=== PATIENT | male | born 1965 | race Caucasian/White ===

== ENCOUNTER 2023-09-01 10:19 | Emergency (ER) | payer BC, SELFPAY ==
[2023-09-01 10:28] VITALS: BP 173/90
[2023-09-01 10:35] VITALS: BMI 42.1
[2023-09-01 10:54] LABS: % Basophils 0.3 % (0-2); % Eosinophils 0.4 % (0-6); % Immature Granulocytes 0.6 % (0-0.5); % Lymphocytes 23.7 % (20.5-51.1); % Monocytes 6.3 % (1.7-9.3); % Neutrophils 68.7 % (42.2-75.2); Absolute Immature Granulocytes 0.1 10^3/uL (0-0.05); Absolute Lymphocytes 2.3 10^3/uL (1.2-3.4); Absolute Monocytes 0.6 10^3/uL (0.1-0.6); Absolute Neutrophils 6.7 10^3/uL (1.4-6.5); Hemoglobin 13.4 g/dL (13.0-18.0); Mean Corp Hgb Conc. 34.4 g/dL (33.0-37.0); Mean Corpuscular Volume 87.2 fL (80.0-94.0); Mean Platelet Volume 9.8 fL (7.4-10.4); Nucleated Red Blood Cells % 0 % (-); Platelet Count 267 10^3/uL (130-400); Red Blood Cell Count 4.47 10^6/uL (4.70-6.10); Red Cell Dist. Width 12.5 % (11.5-14.5); White Blood Cell Count 9.8 10^3/uL (4.8-10.8)
--- NOTE | 2023-09-01 11:00 | ED.GENMED ---
History of Present Illness
General
Chief Complaint: Chest Pain
Source: patient
Exam Limitations: none
Time Seen by Provider: 09/01/23 10:32
Travel History
Have you had any contact with someone who has COVID-19?: No
Do you have any symptoms of coronavirus? Fever > 100 degrees, chills, cough, shortness of breath, sore throat, loss of taste or smell, muscle aches, or headache?: No
History of Present Illness
History of Present Illness:
58-year-old male who presents with chest pain, pain in the back, nausea and a feeling like a lump in the throat which started today. The patient states he was getting ready to take his kids to the beach and had had a [employer] egg and cheese and an ice
tea. Patient states symptoms started shortly after that. He does admit to nausea persistent pain on my exam. Symptoms began about an hour prior to arrival. Patient has a history of gastric bypass surgery. He also has a history of diabetes and
vascular problems. He does report his left leg has been swollen and that he has been seen vascular for it. He denies shortness of breath or dizziness. No vomiting. No abdominal pain.
Past History
Past History
ED Past Medical History: HTN, Hypercholesterolemia, NIDDM and Other (chronic bronchitis)
ED Past Surgical History: Appendectomy, Orthopedic and Other (Gastric sleeve)
Social History
Personal:
Phy Exam
Physical Exam
Physical Exam:
CONSTITUTIONAL Patient alert and oriented to person, place and time. Well-appearing. Vital signs reviewed.
HEAD atraumatic, normocephalic.
EYES eyelids normal to inspection, Pupils equally round and reactive to light, Extraocular muscles intact, Conjunctiva normal, Sclera normal.
NECK normal range of motion, Trachea midline, no jugular venous distention.
RESPIRATORY CHEST No respiratory distress noted, Chest expansion equal, Bilateral breath sounds clear.
CARDIOVASCULAR regular rate and rhythm, Heart sounds normal.
ABDOMEN abdomen nontender, Bowel sounds normal. No distention.
BACK normal inspection, no obvious deformities
UPPER EXTREMITY range of motion normal, Motor strength normal, no cyanosis, no edema.
LOWER EXTREMITY range of motion normal, Motor strength normal, no cyanosis, no edema.
NEURO Speech normal, No focal motor deficits, [place] coma scale 15, Memory normal, Cranial Nerves intact to screening exam.
SKIN skin warm, dry, and normal in color.
PSYCHIATRIC patient oriented to person place and time, Normal affect.
Scores
Heart Score for Chest Pain Patients
STEMI patient?: No
History: Slightly or Non-Suspicious
ECG: Normal
Age: >45 - <65 years
Risk Factors: 1 or 2 Risk Factors
Troponin: </= Normal Limit
Heart Score for Chest Pain Patients: 2
Heart Score Risk: 2.5% MACE over next 6 weeks
Course
Orders/Labs/Results
Orders:
Orders
09/01/23 10:21
EKG [Electrocardiogram (*1)] Urgent
Reason for Study: Chest Pain
09/01/23 10:22
EKG- Treatment ONCE
09/01/23 10:43
Complete Blood Count/With Diff Urgent
Comprehensive Metabolic Panel Urgent
Lipase Urgent
Troponin I Urgent
09/01/23 10:59
Ondansetron Injectable [Zofran] 4 mg IV NOW STA
09/01/23 11:00
D-Dimer Urgent
Ondansetron Injectable [Zofran] 4 mg IV NOW STA
Pantoprazole [Protonix IV] 40 mg IV NOW STA
Sucralfate Suspension [Carafate Suspension] 1 gm PO NOW STA
09/01/23 11:05
Sterile Water [Sterile Water For Injection] 20 ml .ROUTE .STK-MED
09/01/23 11:32
CR Chest - 2 Views Urgent
Comment:
Reason For Exam: cp, back pain
09/01/23 13:00
ECG [Electrocardiogram (*1)] Urgent
Reason for Study: Chest Pain
Other Reason for Exam: Serial troponin
EKG- Treatment ONCE
09/01/23 13:04
Troponin I Urgent
Abnormal Lab Results
09/01/23
10:43
RBC 4.47 L 10^6/uL
(4.70-6.10)
Abs Immat Gran (auto) 0.1 H 10^3/uL
(0-0.05)
Absolute Neuts (auto) 6.7 H 10^3/uL
(1.4-6.5)
Immature Gran % 0.6 H %
(0-0.5)
Glucose 162 H mg/dl
(70-99)
09/01/23 10:43
09/01/23 10:43
Vital Signs
Initial and Last Documented VS:
Initial Vital Signs
Temp Pulse Resp BP Pulse Ox
98.8 F 80 16 173/90 98
09/01/23 10:28 09/01/23 10:28 09/01/23 10:28 09/01/23 10:28 09/01/23 10:28
Last Documented Vital Signs
Temp Pulse Resp BP Pulse Ox
98.8 F 70 17 129/68 98
09/01/23 10:28 09/01/23 14:00 09/01/23 14:00 09/01/23 14:00 09/01/23 14:00
MDM/Problems Addressed
Differential Diagnosis Includes:
ACS, AL, PE, GERD, Aortic dissection
MDM/Problems Addressed:
chest pain
*Radiology
Radiology exam reviewed: radiology read reviewed and all reviewed NAD by ED Provider
*Pulse Oximetry
Patient hypoxic: no
*EKG
Interpreted by ED Provider?: Yes
Interpretation: normal
Rate: normal
Rhythm: sinus
[place]: normal axis
QRS Pattern: normal QRS
Ischemia: no ischemia
*Pricing Coordinator Interpretation
Rate: normal
Interpretation: normal
Rhythm: sinus
*Critical Care Note
Total Time (30-74mins, 75-104mins- exclusive of procedures): Not Applicable
Data Reviewed
Source: patient
Prescriptions/Medications Considered But Not Given:
Consider aspirin but troponin x 2 negative, EKG normal despite persistent symptoms on arrival
Patient Management
Escalation/DeEscalation of care consider admission/obs:
Patient appears quite well. Symptoms began after eating a [employer] egg and cheese croissant and having an ice tea in the morning. I do suspect GI etiology is he feels a little better after GI meds and his troponin x 2 and EKGs are unremarkable. EKG
was normal despite pain. No widened mediastinum or other evidence of aortic dissection. Will initiate PPI and recommend bland diet
ED Attending Note
-
Portions of this chart may have been created with voice recognition software.� Occasional wrong word or��sound alike� substitutions may have occurred due to the inherent limitations of voice recognition software.
Discharge Plan
Departure
Patient Disposition: Home (Routine Discharge)
Date of Disposition: 09/01/23
Time of Disposition: 14:16
Patient with high blood pressure during this ER visit?: No
Discharge Problem:
Chest pain
Instructions: Chest Pain DCA Follow Up
Prescriptions:
New
pantoprazole [Protonix] 40 mg tablet,delayed release (DR/EC)
40 mg PO DAILY Qty: 30 0RF
Rx Instructions:
Please take 30 minutes prior to eating or drinking anything in the morning.
No Action
metformin 1,000 mg tablet
1,000 mg PO BID@0800,1700
rosuvastatin 20 mg tablet
20 mg PO QPM
bupropion HCl 300 mg tablet extended release 24 hr
300 mg PO DAILY
melatonin 10 mg Tablet
10 mg PO HS
Rybelsus 7 mg tablet
7 mg PO DAILY
Bariatric Multi W 18mg Of Iron
1 tab PO DAILY
acetaminophen [Tylenol] 325 mg capsule
650 mg PO Q4H PRN (Reason: mild pain) Qty: 1 0RF
ibuprofen 400 mg tablet
400 mg PO Q6H PRN (Reason: moderate pain) Qty: 1 0RF
Referrals:
Brant Cerda MD [Family Provider] -
Activity Restrictions/Additional Instructions:
Please avoid strenuous or exertional activity until cleared by cardiology. Please see cardiology in the next 48 hours for reevaluation. Return immediately for worsening pain, shortness breath, palpitations, sweating, nausea, weakness of any kind,
numbness, tingling or any other concerns.
Cardiology has been notified and a follow up appointment has been requested. Someone will call you on the next business day to schedule a follow up appointment.
Interventions
Interventions:
*Risk Screen - Suicide Last Done: 09/01/23 13:47
*Neglect/Abuse Screening Last Done: 09/01/23 13:47
*ED COVID-19 Vaccine History Last Done: 09/01/23 10:28
ED- Cardiac Assessment Last Done: 09/01/23 10:43
Discharge Date and Time
Print Language: FAROESE
[2023-09-01 11:05] LABS: ALT (SGPT) 19 U/L (0-50); AST (SGOT) 23 U/L (17-59); Albumin 4.2 g/dl (3.5-5.0); Alkaline Phosphatase 74 U/L (38-126); Blood Urea Nitrogen 15 mg/dl (9-20); Calcium 9.4 mg/dl (8.4-10.2); Carbon Dioxide 25 mmol/L (22-30); Chloride 106 mmol/L (98-107); Estimated Creatinine Clearance > 125 ml/min; Glucose 162 mg/dl (70-99); Lipase 185 U/L (23-300); Potassium 4.4 mmol/L (3.5-5.1); Sodium 140 mmol/L (135-145); Total Bilirubin 0.7 mg/dl (0.2-1.3); Total Protein 7.3 g/dl (6.3-8.2); eGFR > 60.00
[2023-09-01] MEDS: PROTONIX IV 40 MG IV (11:07)
[2023-09-01] MEDS: CARAFATE SUSPENSION 1 GM PO (11:07)
[2023-09-01] MEDS: ZOFRAN 4 MG IV (11:07)
[2023-09-01 11:16] LABS: Troponin I < 0.012 ng/ml
[2023-09-01 11:30] LABS: D-Dimer < 0.27 ug/mlFEU (0.00-0.50)
[2023-09-01 12:23] VITALS: BP 127/66
[2023-09-01 13:00] VITALS: BP 136/72
[2023-09-01 13:44] LABS: Troponin I < 0.012 ng/ml
[2023-09-01 14:00] VITALS: BP 129/68
== END 2023-09-01 15:23 | disposition home or self-care (01) ==
LOC: EMR 10:19
PROVIDERS: EMERGENCY PHYSICIAN Emergency Medicine; FAMILY PHYSICIAN Internal Medicine
DX: R07.89 Other chest pain (principal); E11.9 Type 2 diabetes mellitus without complications
CPT/HCPCS: 99285; 71046; 80053; 83690; 84484; 85025; 85379; 93005

== ENCOUNTER 2023-09-16 20:02 | Emergency (ER) | payer BC, SELFPAY ==
[2023-09-16 20:03] VITALS: BP 152/86
[2023-09-16] MEDS: KEFLEX 500 MG PO (22:21)
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
== END 2023-09-17 | disposition home or self-care (01) ==
LOC: EMR 20:02
PROVIDERS: EMERGENCY PHYSICIAN Emergency Medicine; FAMILY PHYSICIAN Internal Medicine
DX: S61.411A Laceration without foreign body of right hand, initial encounter (principal); W26.0XXA Contact with knife, initial encounter; I10 Essential (primary) hypertension; E78.00 Pure hypercholesterolemia, unspecified; E11.9 Type 2 diabetes mellitus without complications; Z90.49 Acquired absence of other specified parts of digestive tract
CPT/HCPCS: 99283; 12001; 73130

== ENCOUNTER → 2023-09-28 07:43 | Outpatient (REF) | payer BC, SELFPAY | LOC: DHCBC/DCA 07:43 | PROVIDERS: ATTENDING PHYSICIAN Internal Medicine Cardiovascular Disease; FAMILY PHYSICIAN Internal Medicine | DX: R07.2 Precordial pain (principal) | CPT/HCPCS: 78452; 93017; A9500 ==